=== PATIENT | male | born 1995 | race Caucasian/White ===

== ENCOUNTER 2018-01-23 02:56 | Emergency (ER) | payer SELFPAY ==
--- NOTE | 2018-01-23 03:42 | EDPHY ---
H & P Stated Complaint: M1 Time Seen by Provider: 01/23/18 03:35 HPI/ROS: Chief Complaint: Medical clearance HPI: 22-year-old male who was in the locked unit at [facility] in the psychiatric unit. Patient eloped from their facility. The he was found at [employer] in [place] and brought in by police. Patient is currently without complaints. He is not communicative. Denies any ingestions or drug use. Charge nurse has been in contact with [facility] and Dr. Willard will accept the patient in transfer back to their unit. Patient does not require any medical clearance laboratories at this time. He is currently without complaint. ROS: 10 systems were reviewed and were negative except those elements noted in the HPI. Social History: Denies smoking, denies alcohol Family History: non-contributory Physical Exam: Gen: Awake, Alert, No Distress HEENT: Nose: no rhinorrhea Eyes: PERRLA, EOMI Mouth: Moist mucosa Neck: Supple, no JVD Chest: nontender, lungs clear to auscultation Heart: S1, S2 normal, no murmur Abd: Soft, non-tender, no guarding Back: no CVA tenderness, no midline tenderness Ext: no edema, non-tender Skin: no rash Neuro: CN II-XII intact, Sensation grossly intact, Strength 5/5 in bilateral upper and lower extremities - Personal History Current Tetanus Diphtheria and Acellular Pertussis (TDAP): Yes - Medical/Surgical History Hx Asthma: No Hx Chronic Respiratory Disease: No Hx Diabetes: No Hx Cardiac Disease: No Hx Renal Disease: No Hx Cirrhosis: No Hx Alcoholism: No Hx HIV/AIDS: No Hx Splenectomy or Spleen Trauma: No Other PMH: OCD, DEPRESSION, GENERAL ANXIETY DISORDER, EATING DISORDER, R LEG SX - Social History Smoking Status: Never smoked Constitutional: Initial Vital Signs Temperature (C) 36.3 C 01/23/18 02:59 Heart Rate 61 01/23/18 02:59 Respiratory Rate 16 01/23/18 02:59 Blood Pressure 109/78 01/23/18 02:59 O2 Sat (%) 99 01/23/18 02:59 O2 Delivery Mode Room Air Allergies/Adverse Reactions: No Known Allergies Allergy (Unverified 01/23/18 03:01) Home Medications: Medication Instructions Recorded Seroquel 01/23/18 Zoloft 50mg (*) 01/23/18 Medical Decision Making ED Course/Re-evaluation: 22-year-old male who eloped from the eating Disorder unit on a mental health hold from [facility]. He has been accepted transfer back. He has been placed on mental health hold by police here. Patient will be transferred back to [facility], has been accepted by Dr. Willard. I have completed the EMT A LA Departure - Departure Disposition: Other Psych, Not [place] Clinical Impression: Suicidal ideation Condition: Fair Referrals: Patient,NotPresent [Primary Care Provider] - As per Instructions
[2018-01-23 04:16] VITALS: BP 91/58
== END 2018-01-23 04:30 ==
DX: Z01.89 Encounter for other specified special examinations (principal); F32.9 Major depressive disorder, single episode, unspecified; F50.9 Eating disorder, unspecified